=== PATIENT | female | born 1950 | race Caucasian/White ===

== ENCOUNTER 2019-06-07 12:04 | Emergency (ER) | payer MEDICARE ==
[~2019-06-07] VITALS: Ht 154.9 cm; Wt 109.1 kg
[2019-06-07 12:35] VITALS: BP 142/79; Ht 154.9 cm; Wt 109.1 kg
[2019-06-07] MEDS ORDERED: SYNTHROID150 MCG PO (12:36)
[2019-06-07] MEDS ORDERED: HYDROCHLOROTHIA25 MG PO (12:36)
[2019-06-07] MEDS ORDERED: GLUCOPHAGE500 MG PO (12:36)
[2019-06-07] MEDS ORDERED: GLIPIZIDE10 MG PO (12:36)
[2019-06-07] MEDS ORDERED: COZAAR50 MG PO (12:36)
[2019-06-07 13:51] LABS: ALBUMIN 3.8 g/dL (3.4-5.0); ALKALINE PHOSPHATASE 97 U/L (46-116); ALT (SGPT) 33 U/L (10-68); BILIRUBIN - TOTAL 1.04 mg/dL (0.2-1.3); CALC OSMOLALITY 283 mosm/kg (275-300); CALCIUM 10.5 mg/dL (8.5-10.1); CARBON DIOXIDE 29.4 mmol/L (21.0-32.0); CHLORIDE - SERUM 100 mmol/L (98-107); CREATININE - SERUM 1.1 mg/dL (0.6-1.3); GLUCOSE 174 mg/dL (74-106); POTASSIUM - SERUM 3.9 mmol/L (3.5-5.1); PROTEIN - SERUM 7.8 g/dL (6.4-8.2); SODIUM 139 mmol/L (136-145); UREA NITROGEN 18 mg/dL (7-18); eGFR NON AFRICAN AMERICAN 52 mL/min (90-120)
[2019-06-07 13:54] LABS: AMYLASE - SERUM 31 U/L (25-115); LIPASE 110 U/L (73-393); TROPONIN-I < 0.017 ng/mL (0.000-0.060)
[2019-06-07 14:17] LABS: BASOPHILS 0.3 % (0-2); EOSINOPHILS 0.6 % (0-7); HEMOGLOBIN 16.5 g/dL (12-16); IMMATURE GRANULOCYTES 0.3 % (0-5); LYMPHOCYTES 16.9 % (15-50); MCH 31.1 pg (26.0-34.0); MCHC 35.1 g/dL (31.0-37.0); MCV 88.5 fL (80.0-100.0); MEAN PLATELET VOLUME 10.3 fL (7.4-10.4); MONOCYTES 5.6 % (2-11); NEUTROPHILS 76.3 % (40-80); PLATELET COUNT 181 10x3/uL (130-400); RBC 5.31 10x6/uL (4.00-5.40); RDW 13.2 % (11.5-14.5); WBC 14.9 10x3/uL (4.8-10.8)
== END 2019-06-07 14:10 | disposition left against medical advice (07) ==
LOC: D.ER 12:04
PROVIDERS: Family Medicine
DX: R10.9 Unspecified abdominal pain (principal)